=== PATIENT | male | born 1970 | race Caucasian/White ===

== ENCOUNTER 2020-10-03 12:37 | Observation (INO) ==
[2020-10-03] MEDS ORDERED: Naloxone 0.4 MG/ML INJ IVP PRN (16:34)
[2020-10-03] MEDS ORDERED: *HR* Promethazine 25 MG/ML VIAL IM PRN (16:34)
[2020-10-03] MEDS ORDERED: Ondansetron 4 MG/2 ML VIAL IVP PRN (16:34)
[2020-10-03] MEDS ORDERED: *HR* LORazepam 2 MG/ML VIAL IVP PRN ×2 (16:34)
[2020-10-03] MEDS ORDERED: Melatonin 3 MG TABLET PO PRN (16:34)
[2020-10-03] MEDS: *HR* LORazepam 2 MG/ML VIAL IVP PRN (17:47)
[2020-10-03] MEDS ORDERED: Thiamine (B-1) 100 MG, Folic Acid 1 MG, MVI, adult with vitamin K 10 ML in 0.9 % Sodi... IVPB SCH (18:00)
[2020-10-03] MEDS ORDERED: Valproic Acid INJ 1,000 MG in 0.9 % Sodium Chloride 100 ML IVPB ONE (19:59)
[2020-10-04] MEDS: *HR* LORazepam 2 MG/ML VIAL IVP PRN (00:49)
[2020-10-04 01:26] LABS: Basophils % 0.6 %; Eosinophils # 0.1 K/mcL (0.0-0.6); Eosinophils % 1.5 %; Hematocrit 45.1 % (37.5-50.1); Immature Granulocytes % 0.1 % (0-4); Lymphocytes # 2.7 K/mcL (0.6-4.6); Lymphocytes % 39.9 %; Mean Corpuscular HGB Conc 33.3 g/dL (31.6-35.5); Mean Corpuscular Hemoglobin 30.4 pg (28.0-33.3); Mean Corpuscular Volume 91.5 fL (83.0-100.0); Mean Platelet Volume 10.2 fL (9.4-12.4); Monocytes # 0.6 K/mcL (0.0-1.3); Monocytes % 9.3 %; Neutrophils # 3.3 K/mcL (1.6-8.9); Platelet Count 232 K/mcL (140-400); Red Blood Count 4.93 M/mcL (4.19-5.50); Red Cell Distribution Width 12.3 % (11.5-14.5); Segmented Neutrophils % 48.6 %; White Blood Count 6.8 K/mcL (4.3-11.1)
[2020-10-04 01:50] LABS: BUN/Creatinine Ratio 10 (6-26); Blood Urea Nitrogen 9 mg/dL (6-20); Calcium 8.4 mg/dL (8.6-10.3); Carbon Dioxide 25 mEq/L (23-29); Chloride 104 mEq/L (98-107); Glucose 98 mg/dL (70-105); Osmolality,Calculated 281 (280-300); Potassium 3.7 mEq/L (3.5-5.1); Sodium 136 mEq/L (136-145); eGFR For African Americans > 60 (> 60); eGFR For Non-African Americans > 60 (> 60)
[2020-10-04] MEDS ORDERED: Divalproex (12 HR) 500 MG TABLET PO SCH (09:00)
[2020-10-04] MEDS ORDERED: Folic Acid 1 MG TABLET PO SCH (09:00)
[2020-10-04 10:58] VITALS: BP 151/91
[2020-10-04] MEDS ORDERED: Nicotine 21 MG PATCH.TD24 TD SCH (13:15)
== END 2020-10-04 14:56 | disposition left against medical advice (07) ==
LOC: 3BNU → SUATTDRO 15:04
PROVIDERS: ADMIT Internal Medicine; ATTEND Internal Medicine